=== PATIENT | male | born 1975 | race Caucasian/White ===

== ENCOUNTER 2020-09-07 09:45 | Emergency (ER) | payer SELFPAY ==
[~2020-09-07] VITALS: Ht 167.6 cm; Wt 113.4 kg
[2020-09-07 09:52] VITALS: BP 152/100
[2020-09-07] MEDS ORDERED: HYDROcodone/APAP 5/325 MG 1 TAB TAB PO ONE (10:20)
[2020-09-07 10:35] VITALS: BP 147/89
--- NOTE | 2020-09-07 10:38 | NUR ---
CLEARED FOR D/C BY DR LIN; D/C WITH PRESCRIPTION & INSTRUCTIONS ON BACK PAIN; PT FULLY UNDERSTANDS ALL MATERIALS GIVEN RE C/C; HAS NO FURTHER QUESTIONS; AOX4; VSS; AMBULATORY WITH STEADY GAIT; NO SIGNS OF ACUTE DISTRESS
== END 2020-09-07 10:38 | disposition home or self-care (01) ==
LOC: MED 09:45
DX: M54.5 Low back pain (principal); R03.0 Elevated blood-pressure reading, without diagnosis of hypertension; F17.290 Nicotine dependence, other tobacco product, uncomplicated; R10.12 Left upper quadrant pain
CPT/HCPCS: 99283